=== PATIENT | male | born 1995 | race Caucasian/White ===

== ENCOUNTER 2020-04-12 21:05 | Inpatient (IN) | payer BC ==
[~2020-04-12] VITALS: Ht 165.1 cm; Wt 59.1 kg
[2020-04-12 21:45] VITALS: BP 117/70
[2020-04-12 22:03] LABS: BASOPHILS 0.1 % (0-2); EOSINOPHILS 0.5 % (0-7); HEMATOCRIT 45.3 % (42.0-54.0); HEMOGLOBIN 15.2 g/dL (13.5-17.5); IMMATURE GRANULOCYTES 0.4 % (0-5); LYMPHOCYTES 11.5 % (15-50); MCH 31.6 pg (26.0-34.0); MCHC 33.6 g/dL (31.0-37.0); MCV 94.2 fL (80.0-100.0); MEAN PLATELET VOLUME 8.4 fL (7.4-10.4); MONOCYTES 5.6 % (2-11); NEUTROPHILS 81.9 % (40-80); PLATELET COUNT 190 10x3/uL (130-400); RBC 4.81 10x6/uL (4.20-6.10); RDW 12.6 % (11.5-14.5); WBC 12.6 10x3/uL (4.8-10.8)
[2020-04-12 22:15] LABS: CALC OSMOLALITY 279 mosm/kg (275-300); CALCIUM 8.1 mg/dL (8.5-10.1); CARBON DIOXIDE 30.7 mmol/L (21.0-32.0); CHLORIDE - SERUM 104 mmol/L (98-107); CREATININE - SERUM 1.1 mg/dL (0.6-1.3); POTASSIUM - SERUM 4.1 mmol/L (3.5-5.1); SODIUM 141 mmol/L (136-145); UREA NITROGEN 15 mg/dL (7-18); eGFR NON AFRICAN AMERICAN 87 mL/min (90-120)
[2020-04-12 22:18] LABS: GLUCOSE 68 mg/dL (74-106)
[2020-04-12 22:26] LABS: ALBUMIN 3.6 g/dL (3.4-5.0); ALKALINE PHOSPHATASE 43 U/L (30-120); ALT (SGPT) 37 U/L (10-68); BILIRUBIN - TOTAL 0.28 mg/dL (0.2-1.3); LIPASE 84 U/L (73-393); PROTEIN - SERUM 6.2 g/dL (6.4-8.2)
[2020-04-12 22:30] VITALS: BP 113/66
[2020-04-12 23:11] VITALS: BP 123/69
[2020-04-13] VITALS (7 sets, daily range): BP systolic 94–106; BP diastolic 44–63; Ht 165.1 cm; Wt 59.1 kg
[2020-04-13 06:42] LABS: CALCIUM 8.5 mg/dL (8.5-10.1); CARBON DIOXIDE 25.1 mmol/L (21.0-32.0); CHLORIDE - SERUM 105 mmol/L (98-107); CREATININE - SERUM 0.9 mg/dL (0.6-1.3); POTASSIUM - SERUM 4.5 mmol/L (3.5-5.1); SODIUM 140 mmol/L (136-145); eGFR NON AFRICAN AMERICAN > 90 mL/min (90-120)
[2020-04-13 06:46] LABS: BASOPHILS 0 % (0-2); EOSINOPHILS 0 % (0-7); HEMATOCRIT 44.5 % (42.0-54.0); HEMOGLOBIN 14.9 g/dL (13.5-17.5); IMMATURE GRANULOCYTES 0.3 % (0-5); LYMPHOCYTES 6.1 % (15-50); MCH 31.2 pg (26.0-34.0); MCHC 33.5 g/dL (31.0-37.0); MCV 93.3 fL (80.0-100.0); MEAN PLATELET VOLUME 8.8 fL (7.4-10.4); MONOCYTES 2.1 % (2-11); NEUTROPHILS 91.5 % (40-80); RBC 4.77 10x6/uL (4.20-6.10); RDW 12.7 % (11.5-14.5); WBC 14.4 10x3/uL (4.8-10.8)
[2020-04-13 06:48] LABS: CALC OSMOLALITY 278 mosm/kg (275-300); GLUCOSE 118 mg/dL (74-106); UREA NITROGEN 10 mg/dL (7-18)
[2020-04-13 06:56] LABS: PLATELET COUNT 236 10x3/uL (130-400)
[2020-04-13 14:49] LABS: HEMATOCRIT 44.1 % (42.0-54.0); HEMOGLOBIN 14.9 g/dL (13.5-17.5)
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
[2020-04-14 04:00] VITALS: BP 109/70
--- NOTE | 2020-04-14 05:06 | NUR ---
PATIENT EDUCATED AT START OF SHIFT TO THE NEED OF UA URNAL AND CUP IN ROOM. NOT COLLECTED AT THIS TIME, PT. HAS USED THE BATHROOM BY SELF.
[2020-04-14 06:43] LABS: BASOPHILS 0.1 % (0-2); EOSINOPHILS 1.4 % (0-7); HEMATOCRIT 42.8 % (42.0-54.0); IMMATURE GRANULOCYTES 0.2 % (0-5); LYMPHOCYTES 38.7 % (15-50); MCHC 32.7 g/dL (31.0-37.0); MCV 94.9 fL (80.0-100.0); MEAN PLATELET VOLUME 8.7 fL (7.4-10.4); MONOCYTES 7.1 % (2-11); NEUTROPHILS 52.5 % (40-80); PLATELET COUNT 194 10x3/uL (130-400); RBC 4.51 10x6/uL (4.20-6.10)
[2020-04-14 06:48] LABS: WBC 8.5 10x3/uL (4.8-10.8)
[2020-04-14] MEDS ORDERED: HYDROCODON-ACE1 EA10 PO (08:54)
[2020-04-14] MEDS ORDERED: KEFLEX500 MG PO (08:55)
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
[2020-04-14 09:36] VITALS: BP 109/72
[2020-04-14 12:26] LABS: UDS - AMPHET POSITIVE QUAL (NEGATIVE); UDS - BARB NEGATIVE QUAL (NEGATIVE); UDS - BENZO NEGATIVE QUAL (NEGATIVE); UDS - COCAINE NEGATIVE QUAL (NEGATIVE); UDS - OPIATE POSITIVE QUAL (NEGATIVE); UDS - PCP NEGATIVE QUAL (NEGATIVE); UDS - THC POSITIVE QUAL (NEGATIVE)
[2020-04-14 12:30] LABS: BILIRUBIN NEGATIVE (NEGATIVE); KETONE NEGATIVE (NEGATIVE); NITRITE NEGATIVE (NEGATIVE); UROBILINOGEN NORMAL (NORMAL)
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
== END 2020-04-14 13:15 | disposition home or self-care (01) | DRG 804 ==
LOC: D.ER 21:05 → D.MS 04-13 00:55
PROVIDERS: Family Medicine; ADMIT Surgery; ATTEND Surgery
PROC: 0JQ83ZZ Repair Abdomen Subcutaneous Tissue and Fascia, Percutaneous Approach (ICD-10-PCS; principal; 2020-04-13)
PROC: 0WJF4ZZ Inspection of Abdominal Wall, Percutaneous Endoscopic Approach (ICD-10-PCS; 2020-04-13)
DX: S36.039A Unspecified laceration of spleen, initial encounter (principal); S81.012A Laceration without foreign body, left knee, initial encounter; S61.412A Laceration without foreign body of left hand, initial encounter; X99.9XXA Assault by unspecified sharp object, initial encounter; F17.200 Nicotine dependence, unspecified, uncomplicated

== ENCOUNTER 2020-12-17 20:02 | Emergency (ER) | payer SELFPAY ==
[2020-04-13 01:35] VITALS: BMI 21.6
[~2020-12-17 20:02] MED LIST: HYDROCODON-ACE1 EA10 PO; KEFLEX500 MG PO
== END 2020-12-17 20:07 | disposition left against medical advice (07) ==
LOC: D.ER 20:02
DX: S49.90XA Unspecified injury of shoulder and upper arm, unspecified arm, initial encounter (principal)